=== PATIENT | female | born 1965 ===

== ENCOUNTER 2021-05-29 14:41 | Inpatient (IN) | payer SELFPAY ==
[~2021-05-29] VITALS: Ht 160 cm; Wt 72.9 kg
[2021-05-29] MEDS ORDERED: METFORMIN HCL500 MG PO (15:15)
--- NOTE | 2021-05-29 20:35 | NUR ---
PATIENT ASSESMENT COMPLETED. SCHEUDLED MEDICATIONS GIVEN PER ORDER. PATIENTS VITALS TAKEN AND RECORDED. EDUCATED PATIENT ON PLAN OF CARE AND ANSWERED ALL QUESTIONS. PATIENT PROVIDED WITH ICE WATER AND A SNACK. IN ROOM LINEN PROVIDED. PATIENT REPORTS 2/10 PAIN IN HER LLW TO MID LOW ABD. PATIENT DENIES THE NEED FOR PAIN MEDICATION AT THIS TIME. IV INFUSING PER ORDER. PATIENT DENIES ANY FURTHER NEEDS. PROFESSOR OF SPORT MANAGEMENT REMAINS IN ROOM TO COMPLETED ADMISSION.
--- NOTE | 2021-05-29 20:48 | NUR ---
COMPLETED ADMISSION HX WITH PT. MAGGY IS GOING TO STAY THE NIGHT. PT INSTRUCTED HOW TO USE CALL LIGHT AND TURN LIGHTS ON/OFF. PT AND DENY FURTHER NEEDS AT THIS TIME. IV IS INFUSING FINE AND CALL LIGHT IS CLOSE.
--- NOTE | 2021-05-29 22:40 | NUR ---
PT CALLED, IS FEELING COLD, ASKED TO GET TEMP TAKEN, HAS HEADACHE AND NEEDS TO USE THE TOILET, PT UP TO VOID, BACK TO BED, RN IN TO CHECK PT, WARM BLANKETS AND MORE WATER PROVIDED, NO FURTHER NEEDS AT THIS TIME
--- NOTE | 2021-05-29 22:43 | NUR ---
PATIENT ASSISTED TO THE RESTROOM BY COUNTER CONTROL OPERATOR. PATIENT ABLE TO VOID. PATIENT IS BACK IN BED RESTING. PATIENT REPORTS A HEADACHE. PATIENTS TEMP CHECKED AND IT IS 999.4. PATIENT GIVEN PRN TYLENOL PER ORDER. PATIENT DENIES ANY FURTHER NEEDS. PATIENTS REMAINS IN THE ROOM. CALL LIGHT IN REACH.
--- NOTE | 2021-05-29 22:43 | NUR ---
PATIENT ASSISTED TO THE RESTROOM BY GLOBAL PRODUCT MANAGER. PATIENT ABLE TO VOID. PATIENT IS BACK IN BED RESTING. PATIENT REPORTS A HEADACHE. PATIENTS TEMP CHECKED AND IT IS 99.4. PATIENT GIVEN PRN TYLENOL PER ORDER. PATIENT DENIES ANY FURTHER NEEDS. PATIENTS REMAINS IN THE ROOM. CALL LIGHT IN REACH.
--- NOTE | 2021-05-30 00:04 | NUR ---
PATIENTS TEMPERATURE RECHECKED AND FOUND TO BE WNL. PATIENT REPORTS 5/10 PAIN. PATIENT PROVIDED WITH FRESH ICE WATER. PATIENT DENIES ANY FURTHER NEEDS. CALL LIGHT IN REACH.
--- NOTE | 2021-05-30 00:57 | NUR ---
PATIENT IS RESTING IN BED WITH EYES CLOSED, RR 15. CALL LIGHT IN REACH. ASLEEP ON THE COUCH.
--- NOTE | 2021-05-30 02:18 | NUR ---
PATIENTS VITALS TAKEN AND RECORDED. INTKAE AND OUTPUT RECORDED. FRESH ICE WATER PROVIDED. PATIENT DENIES ANY PAIN AT THIS TIME. PATIENT DENIES ANY NEEDS. CALL LIGHT IN REACH.
--- NOTE | 2021-05-30 05:45 | NUR ---
PATIENTS VITALS TAKEN AND RECORDED. PATIENTS INTAKE AND OUTPUT RECORDED. PATIENT GIVEN PRN TYLENOL FOR 2/10 PAIN IN HER LLQ. PATIENTS ICE WATER REFILLED. PATIENT DENIES ANY FURTHER NEEDS. CALL LIGHT IN REACH.
--- NOTE | 2021-05-30 09:00 | NUR ---
PATIENT SLEEPING IN BED. BREAKFAST DELIVERED TO BEDSIDE TABLE. WHITE BOARD UPDATED. CALL LIGHT IN REACH.
[2021-05-30] MEDS ORDERED: FLUCONAZOLE150 MG PO (10:46)
[2021-05-30] MEDS ORDERED: SERTRALINE HCL25 MG PO (10:59)
[2021-05-30] MEDS ORDERED: LISINOPRIL10 MG PO (11:00)
--- NOTE | 2021-05-30 11:46 | NUR ---
Patient resting in bed, eyes closed, respirations even non lobored. Patient has no distress. at beside resting. No needs.
--- NOTE | 2021-05-30 15:21 | NUR ---
Patient awake, alert and oriented x4. Patient reports her pain is tolerable at this time. No needs reported. Patient visiting with .
--- NOTE | 2021-05-30 15:32 | NUR ---
I was able to meet with Tata and her Alejandro today. Both state that they are happy with the care Tata has received while here in the hospital. Tata would like to return home. Per her and her who both are oriented, and answer questions appropriately, she is independant at home. They live together in a house with only two small stairs and have no concerns for her safety on discharge. They are able to purchase medications and food without dificulty per their statements to me. Both feel that no additional help or assistance will be needed at home upon discharge.
--- NOTE | 2021-05-30 15:53 | NUR ---
REPORT RECEIVED FROM MARCELINO RN AND PT. CARE RESUMED.
[2021-05-30] MEDS ORDERED: EXCEDRIN MIGRA1 EAC2 PO (16:37)
[2021-05-30] MEDS ORDERED: VICTOZA 2-0.6 MG/0.1 SUB-Q (16:38)
--- NOTE | 2021-05-30 16:38 | NUR ---
MED REC COMPLETE
--- NOTE | 2021-05-30 19:40 | NUR ---
SHIFT REPORT RECEIVED FROM DAYSHIFT JONO AMADO AT BEDSIDE, pt AWAKE AND RESTING IN BED. APPEARS COMFORTABLE AND RELAXED, ALSO IN ROOM. LR INFUSING AT 75MLS/HR, SITE WNL. pt REPORTS SOME PAIN R/T HEADACHE, WILL MONITOR. CALL LIGHT IN REACH AND BOARD UPDATED.
--- NOTE | 2021-05-30 21:05 | NUR ---
ASSESSMENT COMPLETE, SCHEDULED MEDS GIVEN (SEE EMAR). ACCUCHECK RESULT OF 177, 3 UNITS INSULIN LISPRO AND 10 UNITS LONG ACTING INSULIN GIVEN. IV SITE WNL, FLUSHES EASILY. LR CONTINUES TO INFUSE AT 75MLS/HR. pt DENIES PAIN WITH VOIDING, URINE STRAW/LIGHT YELLOW COLORED. VOIDING QS. BOWEL TONES ACTIVE, pt DENIES NAUSEA. pt REPORTS 1/10 PAIN D/T HEADACHE, UNABLE TO GIVE TYLENOL AT THIS TIME. OFFERED PO OXY, pt DECLINED. COOL CLOTH IN PLACE. IN ROOM AND INTERACTIVE WITH CARE. NO FURTHER NEEDS, CALL LIGHT IN REACH.
--- NOTE | 2021-05-30 23:54 | NUR ---
pt RESTING IN BED WITH EYES CLOSED AND RR EVEN AND UNLABORED, NO DISTRESS NOTED. IN ROOM, CALL LIGHT IN REACH.
--- NOTE | 2021-05-31 01:18 | NUR ---
pt UP SBA TO VOID AND BACK TO BED, PRN TYLENOL GIVEN FOR 8/10 PAIN R/T HEADACHE, COOL RAG TO FOREHEAD AND BACK OF NECK. ORAL TEMP 99.4, ROOM TEMP DECREASED FOR pt COMFORT. IN ROOM. pt REPORTS MINIMAL NAUSEA, IMPROVED AFTER CHANGING POSITIONS, DENIES NEED FOR NAUSEA MEDICATION. NEW BAG OF IV FLUIDS INFUSING (LR) INFUSING AT 75MLS/HR, SITE WNL. CALL LIGHT IN REACH.
--- NOTE | 2021-05-31 03:49 | NUR ---
pt RESTING IN BED WITH EYES CLOSED, RR EVEN AND UNLABORED. NO DISTRESS NOTED. CALL LIGHT IN REACH AND IN ROOM. LR INFUSING AT 75MLS/HR. CALL LIGHT IN REACH.
--- NOTE | 2021-05-31 05:54 | NUR ---
VS AND I&O'S COMPLETE, HAT EMPTIED. pt AWOKE TO VOICE, DENIES NEEDS OR CONCERNS. FRESH WATER AT BEDSIDE, IN ROOM. NO ADDITIONAL NEEDS, CALL LIGHT IN REACH.
--- NOTE | 2021-05-31 09:00 | NUR ---
REPORT RECEIVED FROM NIGHT RN AND PT. CARE RESUMED. PT IS ALERT AND ORIENTED. SHE IS AMBULATING IN THE ROOM. AT BEDSIDE. PT DENIES PAIN AT THIS TIME. IV SITE WNL AND FLUSHES WELL. IVF INFUSING. DISUSSED POC AND MEDS. PT. RESTING WITH CALL LIGHT IN REACH.
--- NOTE | 2021-05-31 09:58 | NUR ---
Vitals, I&Os are complete. Patient is resting with call light in reach.
--- NOTE | 2021-05-31 13:24 | NUR ---
PT. REPORTS HEADACHE HAS IMPROVED AND HAS EATEN LUNCH. DENIES NAUSEA. LEFT RESTING WITH AT BEDSIDE.
--- NOTE | 2021-05-31 14:30 | NUR ---
Vitals, I&Os are complete. Call light is in reach.
[2021-05-31] MEDS ORDERED: VICTOZA 2-0.6 MG/0.1 SUB-Q (15:14)
[2021-05-31] MEDS ORDERED: CEFPODOXIME PR200 MG PO (15:16)
--- NOTE | 2021-05-31 16:15 | NUR ---
ALL DISCHARGE INSTRUCTIONS REVIEWED WITH PT. AND QUESTIONS ANSWERED. ADMIN. PO ABX. SHE DENIES PAIN OR NAUSEA. PT. LEFT VIA WHEELCHAIR WITH ALL BELONGINGS WITH RN AND .
== END 2021-05-31 16:03 | disposition home or self-care (01) | DRG 690 ==
LOC: ED 14:41 → MS 19:43
PROVIDERS: ADMIT Student in an Organized Health Care Education/Training Program; ATTEND Student in an Organized Health Care Education/Training Program
DX: N12 Tubulo-interstitial nephritis, not specified as acute or chronic (principal); R78.81 Bacteremia; B96.20 Unspecified Escherichia coli [E. coli] as the cause of diseases classified elsewhere; E11.65 Type 2 diabetes mellitus with hyperglycemia; Z79.899 Other long term (current) drug therapy; N20.0 Calculus of kidney; Z20.822 Contact with and (suspected) exposure to COVID-19
CPT/HCPCS: 74177; 80048; 80053; 81001; 83605; 83735; 85007; 85025; 87040; 87088; A9270; J0696; J1170; J1650; J1815; J2405; J3475; J7030; J7121; Q9967; U0003